=== PATIENT | female | born 2000 | race African-American/Black ===

== ENCOUNTER 2019-05-05 16:12 | Emergency (ER) | payer SELFPAY ==
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
[2019-05-05] MEDS ORDERED: Ketorolac Tromethamine 30 MG/ML VIAL ONE (17:25)
== END 2019-05-05 17:45 | disposition home or self-care (01) ==
LOC: ERS 16:12
DX: M25.511 Pain in right shoulder (principal); W18.30XA Fall on same level, unspecified, initial encounter
CPT/HCPCS: 96372; J1885